=== PATIENT | female | born 1990 | race Caucasian/White ===

== ENCOUNTER 2023-10-31 04:54 | Inpatient (IN) ==
[2023-10-31] MEDS ORDERED: Lidocaine 1% VIAL 10 MG/ML 30 ML VIAL INJ PRN (06:04)
[2023-10-31] MEDS ORDERED: Lactated Ringers 1000 ml BAG 1,000 ML IV ONE (06:04)
[2023-10-31 07:39] LABS: ABS Basophils 0.1 10^3/uL (0.0-0.1); ABS Eosinophils 0.1 10^3/uL (0.0-0.5); ABS Lymphocytes 2.1 10^3/uL (1.0-4.8); ABS Monocytes 0.7 10^3/uL (0.0-0.9); ABS Neutrophils 7.6 10^3/uL (1.5-7.6); Eosinophil % 0.9 %; Hematocrit 33.6 % (35-45); Hemoglobin 11.1 g/dL (11.5-14.3); Lymphocyte % 19.5 %; Mean Corpuscular Hemoglobin 26.6 pg (27-33); Mean Corpuscular Hgb Conc 32.9 g/dL (31-36); Mean Corpuscular Volume 80.6 fL (80-97); Mean Platelet Volume 10.4 fL (7.5-11.2); Platelet Count 128 10^3/uL (150-450); Red Blood Count 4.17 10^6/uL (3.63-4.92); Red Cell Distribution Width 14.4 % (12-17); White Blood Count 10.6 10^3/uL (3.8-11.8)
[2023-10-31] MEDS ORDERED: Oxytocin in LR 20,000 MILLI.UNIT/1,000 ML BAG IV ONE (08:14)
[2023-10-31] MEDS ORDERED: Witch Hazel PAD JAR TOPICAL PRN (08:36)
[2023-10-31] MEDS ORDERED: Dibucaine 1% OINT 28.35 GM TUBE PR PRN (08:36)
[2023-10-31] MEDS ORDERED: Glycerin ADULT 2.4 gm SUPP PR PRN (08:36)
[2023-10-31 19:02] LABS: Urine Benzodiazepine Screen None Detected (None Detect); Urine Cannabinoids Screen None Detected (None Detect); Urine Opiates Screen None Detected (None Detect)
[2023-11-01 07:35] VITALS: BP 117/70
[2023-11-01 08:12] LABS: ABS Basophils 0.1 10^3/uL (0.0-0.1); ABS Eosinophils 0.2 10^3/uL (0.0-0.5); ABS Lymphocytes 2.6 10^3/uL (1.0-4.8); ABS Monocytes 0.5 10^3/uL (0.0-0.9); ABS Neutrophils 6.5 10^3/uL (1.5-7.6); ABS Nucleated RBC 0.01 10^3/ul; Eosinophil % 1.7 %; Hematocrit 35.3 % (35-45); Hemoglobin 11.4 g/dL (11.5-14.3); Lymphocyte % 26.3 %; Mean Corpuscular Hemoglobin 26.3 pg (27-33); Mean Corpuscular Hgb Conc 32.2 g/dL (31-36); Mean Corpuscular Volume 81.7 fL (80-97); Nucleated Red Blood Cells % 0.1 %/100WBC (0.0-0.8); Platelet Count 127 10^3/uL (150-450); Red Blood Count 4.33 10^6/uL (3.63-4.92); Red Cell Distribution Width 14.3 % (12-17); White Blood Count 9.8 10^3/uL (3.8-11.8)
== END 2023-11-01 12:56 | disposition home or self-care (01) | DRG 560 ==
LOC: MCHOBOUT 04:54 → MCHOB 06:00
PROVIDERS: ADMIT Midwife; ATTEND Midwife